=== PATIENT | male | born 1955 | race Caucasian/White ===

== ENCOUNTER 2020-07-13 08:19 | Outpatient (RCR) | payer MEDICARE, SELFPAY | END 2020-07-13 23:59 | disposition home or self-care (01) | LOC: ANHAUDIO 08:19 | PROVIDERS: PCP Physician Assistant; Visit Provider Physician Assistant | DX: Z46.1 Encounter for fitting and adjustment of hearing aid (principal); H90.3 Sensorineural hearing loss, bilateral | CPT/HCPCS: 99199 ==